=== PATIENT | female | born 1995 | race African-American/Black ===

== ENCOUNTER 2017-06-06 23:13 | Emergency (ER) | payer SELFPAY ==
[~2017-06-06] VITALS: Ht 165.1 cm; Wt 68.0 kg
[2017-06-07 00:43] LABS: CLARITY URINE CLEAR (CLEAR); COLOR URINE YELLOW (YELLOW); GLUCOSE URINE NEGATIVE (NEGATIVE); KETONES URINE NEGATIVE (NEGATIVE); LEUKOCYTE ESTERASE URINE NEGATIVE (NEGATIVE); NITRITE URINE NEGATIVE (NEGATIVE); OCCULT BLOOD URINE NEGATIVE (NEGATIVE); PH URINE >=9.0 (4.5-8.0); PROTEIN URINE NEGATIVE (NEGATIVE); SPECIFIC GRAVITY URINE 1.022 (1.005-1.030); UROBILINOGEN URINE 0.2 E.U./dL (0.2-1.0)
[2017-06-07 02:07] LABS: HEMATOCRIT. 40.1 % (36.0-48.0); HEMOGLOBIN. 13.7 g/dL (12.0-16.0); MEAN CORPUSCULAR HEMOGLOBIN 28.6 pg (28.0-32.0); MEAN CORPUSCULAR VOLUME 83.5 fL (81.0-99.0); MEAN PLATELET VOLUME 8.3 fl (7.4-10.4); PLATELET 217 x1000/uL (130-400); RED CELL DISTRIBUTION WIDTH 15.5 % (11.6-14.6)
[2017-06-07 02:27] LABS: ATYPICAL LYMPHOCYTES 1; CHLORIDE 102 mEq/L (98-107); PLATELET ESTIMATE NORMAL
[2017-06-07] MEDS ORDERED: IBUPROFEN 600MG TABLET PO ONE (02:30)
[2017-06-07 02:38] LABS: CARBON DIOXIDE 29 mEq/L (21-32)
[2017-06-07 04:27] VITALS: BP 117/69
== END 2017-06-07 04:27 | disposition home or self-care (01) ==
LOC: ER 23:13
DX: B34.9 Viral infection, unspecified (principal); R50.81 Fever presenting with conditions classified elsewhere; R03.0 Elevated blood-pressure reading, without diagnosis of hypertension
CPT/HCPCS: 36415; 80053; 81003; 81025; 85025; 87070; 87430; 99284